=== PATIENT | female | born 1995 | race Caucasian/White ===

== ENCOUNTER 2023-03-20 12:04 | Emergency (ER) | payer BC, MEDICAID ==
[~2023-03-20] VITALS: Ht 165.1 cm; Wt 63.5 kg
[~2023-03-20 12:04] MED LIST: PREN-96 PO
[2023-03-20 13:44] LABS: Calcium 9.2 mg/dL (8.5-10.1)
[2023-03-20 13:46] LABS: BUN/Creatinine Ratio 8.6 (10.0-20.0)
[2023-03-20 13:51] LABS: Basophils # (auto) 0 10 ^3/uL (0-0.2); Basophils % (auto) 0.8 % (0.0-2.0); Eosinophils # (auto) 0 10 ^3/uL (0-0.8); Eosinophils % (auto) 0.6 % (0.0-7.0); Hematocrit 45.7 % (36.0-46.0); Hemoglobin 15.4 g/dL (12.2-16.2); Lymphocytes % (auto) 27.7 % (10.0-50.0); Mean Corpuscular Hemoglobin 30.9 pg (28.0-32.0); Mean Corpuscular Hgb Conc. 33.7 g/dL (32.0-36.0); Mean Corpuscular Volume 91.8 fL (80.0-100.0); Monocytes # (auto) 0.5 10 ^3/uL (0-1.3); Monocytes % (auto) 12.9 % (0.0-12.0); Neutrophils # (auto) 2.1 10 ^3/uL (1.6-8.6); Nucleated Red Blood Cells % 0.6 %; Red Blood Cells 4.97 10^6/uL (4.0-5.20); Red Cell Distribution Width 13.1 % (11.8-14.3); White Blood Cell 3.7 10^3/uL (4.4-10.8)
[2023-03-20 14:54] LABS: Urine Bacteria MANY /hpf (None Seen); Urine Blood Negative /uL (Negative); Urine Specific Gravity 1.002 (1.001-1.035); Urine WBC 2 /hpf (0 - 5)
[2023-03-20] MEDS ORDERED: CEPHALEXIN 250 MG CAP PO ONE (21:00)
[2023-03-20] MEDS ORDERED: CEPH500T PO ×3 (21:01→21:40)
[2023-03-20 21:32] VITALS: BP 129/90
[2023-03-20] MEDS ORDERED: FLUC150T38 PO (21:40)
== END 2023-03-20 21:43 | disposition home or self-care (01) ==
LOC: ER 12:04
DX: N39.0 Urinary tract infection, site not specified (principal); R07.89 Other chest pain; E03.9 Hypothyroidism, unspecified; Z79.899 Other long term (current) drug therapy
CPT/HCPCS: 36415; 71045; 80048; 81001; 81025; 82962; 84484; 85025; 93005